=== PATIENT | female | born 1965 | race Caucasian/White ===

== ENCOUNTER 2018-07-23 11:06 | Emergency (ER) | payer OTHER ==
[~2018-07-23] VITALS: Ht 152.4 cm; Wt 81.6 kg
[~2018-07-23 11:06] MED LIST: ALPR.5T PO
[2018-07-23] MEDS ORDERED: ASPIRIN 81 MG CHEW (CHILDREN'S ASA) PO ONE (11:15)
--- OUTSIDE RECORDS SUMMARY | 2018-07-23 11:21 | XMS REPORT ---
Author Author MISSAEL CARDOSO Organization [facility] Address [address] [place] [address] Care Team Providers Care Physical Education Teacher Name Role Phone MISSAEL CARDOSO Unavailable PROBLEMS Type Condition ICD9-CM Code [id number] Code Onset Dates Condition Status SNOMED Code Problem Constipation, unspecified constipation type K59.00 Active 55859084 ALLERGIES Substance Reaction Event Type Date Status Penicillin V Potassium hives Drug Allergy Jul, Active Codeine Sulfate hives Drug Allergy Jul, Active SOCIAL HISTORY Never Assessed PLAN OF CARE Activity Details Follow Up prn Reason: VITAL SIGNS Height 61 in 2016-08-24 Weight 192.4 lbs 2016-08-24 Temperature 98.2 degrees Fahrenheit 2016-08-24 Heart Rate 78 bpm 2016-08-24 Respiratory Rate 18 2016-08-24 BMI 36.35 kg/m2 2016-08-24 Blood pressure systolic 118 mmHg 2016-08-24 Blood pressure diastolic 78 mmHg 2016-08-24 MEDICATIONS Medication Instructions Dosage Frequency Start Date End Date Duration Status Estriol Active Lorazepam Active RESULTS Name Result Date Reference Range UA LONG DIP (IN HOUSE) 2016-08-24 Lot # [id number] Exp date 2017 Clarity dark Color yellow Odor none GLU negative DANE negative KET negative SG >1.030 BLO negative pH 6.0 Protein 1+ URO 1.0 NIT negative BEKAH trace Lot # [id number] Exp date 2017 07 Abdomen 1v (Upright) - IN HOUSE 2016-08-24 PROCEDURES Procedure Date Ordered Result Body Site URINALYSIS, AUTO, W/O SCOPE Aug 24, 2016 IMMUNIZATIONS No Known Immunizations MEDICAL (GENERAL) HISTORY Type Description Date Surgical History gallbladder 2008 Surgical History bilateral tubal ligation 1985 Surgical History csection 1985 Hospitalization History post csection 1985
--- NOTE | 2018-07-23 11:24 | ED Chest Pain ---
General Chief Complaint: Chest Pain Stated Complaint: SOB/CHEST AND ARM PAIN Nursing Triage Note: TO ROOM 05 WITH VAUGE SYMPTOMS. STATES OFF AND ON CHEST PAIN SINCE YESTERDAY AND NOT FEELING RIGHT. STATES SHE THINKS IT IS HER ANXIETY AND HAS TAKEN HER DAILY XANAX. DENIES CHEST PAIN OR SOA AT THIS TIME. Nursing Sepsis Screen: No Definite Risk Source: patient Exam Limitations: no limitations History of Present Illness Date Seen by Provider: Jul 23, 2018 Time Seen by Provider: 11:10 Initial Comments To ER with intermittent sharp substernal chest pain. She has associated shortness of breath intermittently and pain down her arms intermittently. She cannot identify any factors that exacerbate or bring about the pain and shortness of breath or factors that make it go away. She does smoke 1 pack of cigarettes daily and has done so for about 20-25 years. He has no known personal history of heart disease or family history of heart disease that she is aware of. Symptoms are intermittent and currently resolved. Timing/Duration: intermittent, resolved prior to arrival, 1-2 days Severity/Quality: sharp Location: central Radiation: arms Activities at Onset: none ASA po RISK COMPLIANCE ANALYST: No NTG SL RISK COMPLIANCE ANALYST: No Associated Symptoms: shortness of breath (what like what) Allergies and Home Medications Allergies Coded Allergies: No Known Drug Allergies (Unverified , 04/01/10) Home Medications Alprazolam 0.5 Mg Tablet, 1 TAB PO BID PRN, (Reported) Patient Home Medication List Home Medication List Reviewed: Yes Review of Systems Review of Systems Constitutional: see HPI EENTM: No Symptoms Reported Respiratory: See HPI Cardiovascular: See HPI, Chest Pain Gastrointestinal: No Symptoms Reported Genitourinary: No Symptoms Reported Musculoskeletal: no symptoms reported Skin: no symptoms reported Psychiatric/Neurological: No Symptoms Reported Endocrine: No Symptoms Reported Hematologic/Lymphatic: No Symptoms Reported (I didn't see him) Past Pantdvl-Bxiuzx-Jynohz Hx Patient Social History Alcohol Use: Denies Use Recreational Drug Use: No Smoking Status: Current Everyday Smoker Recent Foreign Travel: No Contact w/Someone Who Travel: No Recent Infectious Disease Expo: No Recent Hopitalizations: No Seasonal Allergies Seasonal Allergies: No Past Medical History Gallbladder, Tubal Ligation Respiratory: No Cardiac: No Neurological: No Genitourinary: No Gastrointestinal: No Musculoskeletal: No Endocrine: No HEENT: No Cancer: No Psychosocial: Yes Anxiety Integumentary: No Physical Exam Vital Signs Vital Signs - First Documented 07/23/18 11:12 Temp 98.0 Pulse 85 Resp 16 B/P (MAP) 133/79 (97) Pulse Ox 98 O2 Delivery Room Air Capillary Refill : Less Than 3 Seconds Height, Weight, BMI Height: 5'" Weight: 180lbs. oz. 81.832979ph; BMI Method:Stated General Appearance: No Apparent Distress, WD/WN HEENT: PERRL/EOMI, TMs Normal Neck: Full Range of Motion, Normal Inspection Respiratory: Normal Breath Sounds, No Accessory Muscle Use, No Respiratory Distress Cardiovascular: Regular Rate, Rhythm, Normal Peripheral Pulses Gastrointestinal: Normal Bowel Sounds, Non Tender, Soft Extremity: Normal Capillary Refill, Normal Inspection Neurologic/Psychiatric: Alert, Oriented x3 Skin: Normal Color, Warm/Dry Progress/Results/Core Measures Results/Orders Lab Results Laboratory Tests Test 07/23/18 11:29 07/23/18 11:52 Range/Units Prothrombin Time 11.9 L 12.2-14.7 SEC INR Comment 0.9 0.8-1.4 Activated Partial Thromboplast Time 26 24-35 SEC D-Dimer 0.30 0.00-0.49 UG/ML Sodium Level 139 135-145 MMOL/L Potassium Level 4.4 3.6-5.0 MMOL/L Chloride Level 105 98-107 MMOL/L Carbon Dioxide Level 24 21-32 MMOL/L Anion Gap 10 5-14 MMOL/L Blood Urea Nitrogen 10 7-18 MG/DL Creatinine 0.76 0.60-1.30 MG/DL Estimat Glomerular Filtration Rate > 60 BUN/Creatinine Ratio 13 Glucose Level 103 70-105 MG/DL Calcium Level 9.5 8.5-10.1 MG/DL Corrected Calcium 9.4 8.5-10.1 MG/DL Magnesium Level 2.4 1.8-2.4 MG/DL Total Bilirubin 0.3 0.1-1.0 MG/DL Aspartate Amino Transf (AST/SGOT) 22 5-34 U/L Alanine Aminotransferase (ALT/SGPT) 16 0-55 U/L Alkaline Phosphatase 98 40-136 U/L Myoglobin 30.2 10.0-92.0 NG/ML Troponin I < 0.028 <0.028 NG/ML Total Protein 7.3 6.4-8.2 GM/DL Albumin 4.1 3.2-4.5 GM/DL Lipase 22 8-78 U/L White Blood Count 5.5 4.3-11.0 10^3/uL Red Blood Count 4.71 4.35-5.85 10^6/uL Hemoglobin 14.4 11.5-16.0 G/DL Hematocrit 42 35-52 % Mean Corpuscular Volume 90 80-99 FL Mean Corpuscular Hemoglobin 31 25-34 PG Mean Corpuscular Hemoglobin Concent 34 32-36 G/DL Red Cell Distribution Width 13.7 10.0-14.5 % Platelet Count 256 130-400 10^3/uL Mean Platelet Volume 10.8 H 7.4-10.4 FL Neutrophils (%) (Auto) 45 42-75 % Lymphocytes (%) (Auto) 42 12-44 % Monocytes (%) (Auto) 9 0-12 % Eosinophils (%) (Auto) 4 0-10 % Basophils (%) (Auto) 1 0-10 % Neutrophils # (Auto) 2.5 1.8-7.8 X 10^3 Lymphocytes # (Auto) 2.3 1.0-4.0 X 10^3 Monocytes # (Auto) 0.5 0.0-1.0 X 10^3 Eosinophils # (Auto) 0.2 0.0-0.3 10^3/uL Basophils # (Auto) 0.0 0.0-0.1 10^3/uL B-Type Natriuretic Peptide < 10.0 <100.0 PG/ML My Orders Orders - HIEU PRINCE APRN Cbc With Automated Diff (07/23/18 11:14) Magnesium (07/23/18 11:14) Chest 1 View, Ap/Pa Only (07/23/18 11:14) Ekg Tracing (07/23/18 11:14) Cardiac Profile 1 (07/23/18 11:14) Comprehensive Metabolic Panel (07/23/18 11:14) Myoglobin Serum (07/23/18 11:14) Protime With Inr (07/23/18 11:14) Partial Thromboplastin Time (07/23/18 11:14) O2 (07/23/18 11:14) Monitor-Rhythm Ecg Trace Only (07/23/18 11:14) Lipid Panel (07/24/18 06:00) Aspirin Chewable Tablet (Baby Aspirin Ch (07/23/18 11:15) Saline Lock/Iv-Start (07/23/18 11:14) Lipase (07/23/18 11:14) BNP (07/23/18 11:14) Fibrin Degradation Products (07/23/18 11:29) Medications Given in ED Current Medications Medications Dose Ordered Sig/Edi Route Start Time Stop Time Status Last Admin Dose Admin Aspirin 324 mg ONCE ONCE PO 07/23/18 11:15 07/23/18 11:16 DC 07/23/18 11:21 324 MG Vital Signs/I&O 07/23/18 11:12 Temp 98.0 Pulse 85 Resp 16 B/P (MAP) 133/79 (97) Pulse Ox 98 O2 Delivery Room Air Blood Pressure Mean: 97 Diagnostic Imaging Diagonstic Imaging: Xray Plain Films/CT/US/NM/MRI: chest Comments NAME: NOA [facility]AG[facility] REC#: [id number] PT STATUS: REG ER : 1965 PHYSICIAN: HIEU PRINCE APRN ADMIT DATE: 07/23/18/ER Signed Date of Exam:07/23/18 CHEST 1 VIEW, AP/PA ONLY INDICATION: Chest pain COMPARISON: 08/24/2008 FINDINGS: A single view of the chest demonstrates clear lungs bilaterally. The heart is normal. There is no pneumothorax. The osseous structures are normal. IMPRESSION: Negative chest. Dictated by: Dictated on workstation # [id number] Dict: 07/23/18 1125 Trans: 07/23/18 1137 [facility] [id number] Interpreted by: NELSON COLLINS Electronically signed by: NELSON COLLINS 07/23/18 1137 Departure Communication (Admissions) 1236-still symptom free. Repeat troponin at 1:30. IF Still negative, discharge to home. Impression Primary Impression: Chest pain Qualified Codes: R07.9 - Chest pain, unspecified Disposition: HOME, SELF-CARE Condition: Stable Departure-Patient Inst. Decision time for Depature: 12:36 Referrals: NO,LOCAL PHYSICIAN (PCP/Family) Primary Care Physician Patient Instructions: Chest Pain (DC) HIEU PRINCE APRN Jul 23, 2018 11:24
--- NOTE | 2018-07-23 11:33 | Diagnostic Imaging Report ---
INDICATION: Chest pain COMPARISON: 08/24/2008 FINDINGS: A single view of the chest demonstrates clear lungs bilaterally. The heart is normal. There is no pneumothorax. The osseous structures are normal. IMPRESSION: Negative chest. Dictated by: Dictated on workstation # [id number]
[2018-07-23 11:59] LABS: ALANINE AMINOTRANSFERASE 16 U/L (0-55); ALBUMIN 4.1 GM/DL (3.2-4.5); ALKALINE PHOSPHATASE 98 U/L (40-136); BILIRUBIN,TOTAL 0.3 MG/DL (0.1-1.0); BUN/CREATININE RATIO 13; CALCIUM 9.5 MG/DL (8.5-10.1); CARBON DIOXIDE 24 MMOL/L (21-32); CHLORIDE 105 MMOL/L (98-107); CREATININE SERUM 0.76 MG/DL (0.60-1.30); GFR ESTIMATED > 60; GLUCOSE 103 MG/DL (70-105); LIPASE 22 U/L (8-78); MAGNESIUM 2.4 MG/DL (1.8-2.4); POTASSIUM 4.4 MMOL/L (3.6-5.0); SODIUM 139 MMOL/L (135-145); TOTAL PROTEIN 7.3 GM/DL (6.4-8.2)
[2018-07-23 12:00] LABS: PROTHROMBIN TIME PATIENT 11.9 SEC (12.2-14.7)
[2018-07-23 12:01] LABS: FIBRIN DEGRADATION PRODUCTS 0.3 UG/ML (0.00-0.49); INR 0.9 (0.8-1.4)
[2018-07-23 12:02] LABS: BASOPHILS % (AUTO) 1 % (0-10); EOSINOPHILS # (AUTO) 0.2 10^3/uL (0.0-0.3); EOSINOPHILS % (AUTO) 4 % (0-10); HEMATOCRIT 42 % (35-52); HEMOGLOBIN 14.4 G/DL (11.5-16.0); LYMPHOCYTES # (AUTO) 2.3 X 10^3 (1.0-4.0); LYMPHOCYTES % (AUTO) 42 % (12-44); MEAN CORPUSCULAR HEMOGLOBIN 31 PG (25-34); MEAN CORPUSCULAR HGB CONC 34 G/DL (32-36); MEAN CORPUSCULAR VOLUME 90 FL (80-99); MEAN PLATELET VOLUME 10.8 FL (7.4-10.4); MONOCYTES # (AUTO) 0.5 X 10^3 (0.0-1.0); MONOCYTES % (AUTO) 9 % (0-12); NEUTROPHILS # (AUTO) 2.5 X 10^3 (1.8-7.8); NEUTROPHILS % (AUTO) 45 % (42-75); PLATELET COUNT 256 10^3/uL (130-400); RED CELL DISTRIBUTION WIDTH 13.7 % (10.0-14.5); WHITE BLOOD COUNT 5.5 10^3/uL (4.3-11.0)
[2018-07-23 12:06] LABS: MYOGLOBIN SERUM 30.2 NG/ML (10.0-92.0)
--- NOTE | 2018-07-23 12:30 | NUR ---
PT RESTING IN BED. NOTIFIED WE WERE WAITING ON LABS. DENIES NEEDS AT THSIT TIME.
--- NOTE | 2018-07-23 12:32 | NUR ---
HIEU IN ROOM WITH PT AT THIS TIME.
--- NOTE | 2018-07-23 14:17 | NUR ---
HIEU IN TALKING TO PT AT THIS TIME.
[2018-07-23 14:28] VITALS: BP 120/67
== END 2018-07-23 14:28 | disposition home or self-care (01) ==
LOC: EDUNIT# 11:06 → ER 11:08
DX: R07.81 Pleurodynia (principal); F41.9 Anxiety disorder, unspecified; F17.210 Nicotine dependence, cigarettes, uncomplicated; Z98.51 Tubal ligation status
CPT/HCPCS: 36415; 71045; 80053; 83690; 83735; 83874; 83880; 84484; 85025; 85379; 85610; 85730; 93005; 93041